=== PATIENT | male | born 1970 | race Caucasian/White ===

== ENCOUNTER 2020-07-20 08:08 | Emergency (ER) | payer OTHER ==
[~2020-07-20] VITALS: Ht 177.8 cm; Wt 113.9 kg
--- NOTE | 2020-07-20 08:20 | NUR ---
UNABLE TO PROVIDE UIRINE SAMPLE AT THIS TIME.
--- NOTE | 2020-07-20 08:20 | NUR ---
patient BIB family member from home with c/o Left flank pain radiating to lower abdomen of 9/10 pain rating. patient algerian speaking. family member at bedside for norwegian translation.
--- NOTE | 2020-07-20 08:25 | NUR ---
iv line established. blood drawn, collected and sent to lab
[2020-07-20] MEDS ORDERED: ONDANSETRON HCL/PF 4 MG/2 ML VIAL ONE (08:26)
[2020-07-20] MEDS ORDERED: MORPHINE SULFATE INJ 4 MG/ML DISP.SYRIN ONE (08:27)
--- NOTE | 2020-07-20 08:30 | NUR ---
pt able to give urine. collected and sent to lab
--- NOTE | 2020-07-20 08:30 | NUR ---
due medications given as ordered. explained benefits and side effects of medications. verbalizes understanding
--- NOTE | 2020-07-20 08:45 | NUR ---
radiologist came to do ct abdomen
[2020-07-20 08:59] LABS: BASOPHILS % (AUTO) 0.3 % (0.0-2.0); EOSINOPHILS % (AUTO) 0.3 % (0.0-6.0); HEMATOCRIT 44 % (39-51); HEMOGLOBIN 15.3 g/dL (13.5-17.5); LYMPHOCYTES # (AUTO) 0.9 /CMM (0.8-4.8); LYMPHOCYTES % (AUTO) 12.4 % (20.0-44.0); MEAN CORPUSCULAR HGB CONC 35 g/dl (31.0-36.0); MEAN CORPUSCULAR VOLUME 90 fL (80-96); MONOCYTES # (AUTO) 0.2 /CMM (0.1-1.30); MONOCYTES % (AUTO) 2.5 % (2.0-12.0); NEUTROPHILS # (AUTO) 6.3 /CMM (1.8-8.9); NEUTROPHILS % (AUTO) 84.5 % (43.0-81.0); PLATELET COUNT (AUTO) 205 /CMM (150-450); RED BLOOD CELL COUNT(AUTO) 4.92 MIL/uL (4.5-6.0); WHITE BLOOD COUNT (AUTO) 7.5 K/uL (4.3-11.0)
--- NOTE | 2020-07-20 08:59 | NUR ---
pt came back from radiology. ct abdomen done. waiting for result. will continue POC
[2020-07-20] MEDS: IV NS 0.9% 1,000 ML BAG IV ONE (09:00)
[2020-07-20 09:01] LABS: APPEARANCE,URINE CLEAR (CLEAR); BILIRUBIN,URINE NEGATIVE (NEGATIVE); BLOOD, URINE SMALL Ery/uL (NEGATIVE); COLOR,URINE YELLOW (YELLOW); KETONES,URINE NEGATIVE (NEGATIVE); LEUKOCYTE ESTERASE ,URINE NEGATIVE (NEGATIVE); NITRITE, URINE NEGATIVE (NEGATIVE); PH,URINE 5.5 (5.0-8.0); PROTEIN,URINE TRACE mg/dl (NEGATIVE); UGLUCOSE NEGATIVE (NEGATIVE); UROBILINOGEN,URINE 0.2 EU/dL (0.2)
[2020-07-20] MEDS: ONDANSETRON HCL/PF 4 MG/2 ML VIAL IVP ONE (09:02)
[2020-07-20] MEDS: MORPHINE SULFATE INJ 2 MG/ML DISP.SYRIN IV ONE (09:02)
[2020-07-20 09:34] LABS: ALBUMIN 4.4 g/dL (3.4-5.0); BILIRUBIN,DIRECT 0.1 mg/dL (0.0-0.2); BILIRUBIN,TOTAL 0.5 mg/dL (0.2-1.0); CALCIUM, SERUM 9.2 mg/dL (8.5-10.1); CREATININE 1.5 mg/dL (0.6-1.3); POTASSIUM 4.8 mmol/L (3.5-5.1); TOTAL PROTEIN, SERUM 8.1 g/dL (6.4-8.2)
[2020-07-20 09:40] LABS: BACTERIA,URINE Rare /HPF (None Seen); SQUAMOUS EPITHELIAL CELL,UR Rare /HPF (None Seen); WBC,URINE 0-2 /HPF (0-3)
--- NOTE | 2020-07-20 09:50 | NUR ---
seen by . explained lab results. waiting for [facility]
[2020-07-20] MEDS ORDERED: KETOROLAC TROMETHAMINE 15 MG/ML VIAL ONE (10:03)
[2020-07-20] MEDS: KETOROLAC TROMETHAMINE INJ 30 MG/ML VIAL IV ONE (10:08)
--- NOTE | 2020-07-20 10:11 | NUR ---
iv toradol given as ordered. will continue to monitor
--- NOTE | 2020-07-20 10:29 | NUR ---
Discharge instruction explained to pt and family member at bedside. verbalizes understanding. iv line removed. pain reassessed. noted with 10/30. stated it is tolerable pain at this time. pt will discharge accompanied by family member.
[2020-07-20 10:31] VITALS: BP 128/76
== END 2020-07-20 10:35 | disposition home or self-care (01) ==
LOC: ER 08:16
DX: N23 Unspecified renal colic (principal); K76.9 Liver disease, unspecified; R91.8 Other nonspecific abnormal finding of lung field; I10 Essential (primary) hypertension
CPT/HCPCS: 36415; 74176; 80048; 80076; 81001; 83690; 85025; 87086; 96374; 96375; 99284; J1885; J2270; J2405; J7030; 81000-TC